=== PATIENT | male | born 1960 | race Hispanic/Latino ===

== ENCOUNTER 2018-10-20 19:58 | Observation (INO) | payer MEDICAID, MEDICARE ==
[2018-10-20 19:58] VITALS: BMI 32.8
[2018-10-20] MEDS ORDERED: Sodium Chloride 0.9% 1,000 ML IV STA (20:20)
--- NOTE | 2018-10-20 20:21 | ED PDOC ---
HPI: Chest Pain Time Seen by Provider: 10/20/18 20:08 Chief Complaint (Nursing): Abdominal Pain Chief Complaint (Provider): chest pain History Per: Patient History/Exam Limitations: no limitations Onset/Duration Of Symptoms: Days (today) Additional Complaint(s): Pt. with chest pain left side and left upper abd. Was at home and tried to eat something which he couldn't swallow and then vomited 1 time with blood tinge. Then the chest pain started. Currently pain improving. Has dyspnea with it. No numbness, tingles, dizziness. No weakness. No leg pain, long distance travel, or hormone use. No back pain. Past Medical History Reviewed: Nursing Documentation, Vital Signs Vital Signs: Last Vital Signs Temp 98.9 F 10/20/18 20:01 Pulse 73 10/20/18 20:01 Resp 18 10/20/18 20:01 BP 144/96 H 10/20/18 20:01 Pulse Ox 96 10/20/18 20:01 Primary Care Provider: DoctorKeely - Medical History PMH: Diabetes, HTN (NO MEDS), Hypercholesterolemia (NO MEDS), Sleep Apnea Other PMH: mi - Family History Family History: States: Unknown Family Hx - Living Arrangements Living Arrangements: With Family - Immunization History Hx Tetanus Toxoid Vaccination: No Hx Influenza Vaccination: Yes Hx Pneumococcal Vaccination: No - Home Medications Home Medications: Ambulatory Orders Medication Instructions Recorded Lisinopril [Zestril] 20 mg PO DAILY 06/11/17 Metformin HCl [Glucophage Xr] 500 mg PO DAILY 06/11/17 Pravastatin Sodium 40 mg PO HS 06/11/17 hydroCHLOROthiazide [Hydrodiuril] 25 mg PO DAILY 06/11/17 Aspirin [Aspirin Chewable] 81 mg PO DAILY 10/20/18 Clonazepam [Klonopin] 0.5 mg PO BID PRN 10/20/18 Montelukast Sodium [Singulair] 10 mg PO DAILY 10/20/18 Mv-Mn/Iron/FA/Vit K/Chol/Coq10 1 tab PO DAILY 10/20/18 [Advanced Multi Ea Chew Tablet] - Allergies Allergies/Adverse Reactions: Allergies Allergy/AdvReac Type Severity Reaction Status Date / Time No Known Allergies Allergy Verified 10/20/18 20:07 Review of Systems ROS Statement: Except As Marked, All Systems Reviewed And Found Negative Cardiovascular: Positive for: Chest Pain Respiratory: Positive for: Shortness of Breath Gastrointestinal: Positive for: Nausea, Vomiting, Abdominal Pain, Hematemesis (1x) Physical Exam - Reviewed Nursing Documentation Reviewed: Yes Vital Signs Reviewed: Yes - Physical Exam Appears: Positive for: Non-toxic, No Acute Distress Head Exam: Positive for: ATRAUMATIC, NORMAL INSPECTION, NORMOCEPHALIC Skin: Positive for: Normal Color, Warm, DRY Eye Exam: Positive for: EOMI, Normal appearance, PERRL ENT: Positive for: Normal ENT Inspection Neck: Positive for: Normal, Painless ROM Cardiovascular/Chest: Positive for: Regular Rate, Rhythm, Chest Non Tender. Negative for: Edema Respiratory: Positive for: CNT, Normal Breath Sounds Gastrointestinal/Abdominal: Positive for: Normal Exam, Soft. Negative for: Tenderness Back: Positive for: Normal Inspection. Negative for: L CVA Tenderness, R CVA Tenderness Extremity: Positive for: Normal ROM. Negative for: Tenderness, Pedal Edema Neurological/Psych: Positive for: Awake, Alert, Normal Tone - Laboratory Results Result Diagrams: 10/20/18 20:50 10/20/18 20:50 Interpretation Of Abn Labs: no acute - ECG ECG: Positive for: Interpreted By Me, Viewed By Me ECG Rhythm: Positive for: Sinus Rhythm, Nonspecific Changes O2 Sat by Pulse Oximetry: 96 Pulse Ox Interpretation: Normal - Radiology X-Ray: Interpreted by Me, Viewed By Me X-Ray Interpretation: No Acute Disease - Progress ED Course And Treament: 2312: Stable. AAOx3. Pain free. Will need admit for further eval considering risk factors. 2322: Spoke with Dr. Irwin. Will admit tele. Disposition - Clinical Impression Clinical Impression: Chest pain - Patient ED Disposition Is Patient to be Admitted: Yes - Disposition Disposition Time: 22:00 Condition: FAIR - Pt Status Changed To: Hospital Disposition Of: Observation - POA Present On Arrival: None
[2018-10-20 21:07] LABS: BASO # 0.1 K/uL (0.0-0.2); BASO % 0.9 % (0.0-2.0); EOS # 0.1 K/uL (0.0-0.7); EOS % 1.6 % (0.0-4.0); HEMOGLOBIN 13.3 g/dL (12.0-18.0); LYMPH # 1.8 K/uL (1.0-4.3); LYMPH % 19.5 % (20.0-40.0); MEAN CELL VOLUME 91.6 fl (80.0-94.0); MEAN CORPUSCULAR HEMOGLOBIN 30.5 pg (27.0-31.0); MEAN CORPUSCULAR HGB CONC 33.3 g/dL (33.0-37.0); MEAN PLATELET VOLUME 7.6 fl (7.2-11.7); MONO # 0.6 K/uL (0.0-0.8); MONO % 6.1 % (0.0-10.0); NEUT # 6.6 K/uL (1.8-7.0); NEUT % 71.9 % (50.0-75.0); RBC 4.35 Mil/uL (4.40-5.90); RED CELL DISTRIBUTION WIDTH 13.7 % (11.5-14.5); WHITE BLOOD COUNT 9.2 K/uL (4.8-10.8)
[2018-10-20 21:13] LABS: INR 1.1; PROTHROMBIN TIME 12.7 Seconds (9.8-13.1)
[2018-10-20 21:19] LABS: ALB/GLOB RATIO 1.5 (1.0-2.1); ALBUMIN 4.2 g/dL (3.5-5.0); ALT/SGPT 48 U/L (21-72); AST/SGOT 41 U/L (17-59); BLOOD UREA NITROGEN 17 mg/dl (9-20); CALCIUM 9.4 mg/dL (8.4-10.2); GFR NON-AFRICAN AMERICAN > 60; LIPASE 70 U/L (23-300)
[2018-10-20 22:06] LABS: B-TYPE NATRIURETIC PEPTIDE 155 pg/ml (0-900)
[2018-10-21 05:41] LABS: HDL CHOLESTEROL 34 MG/DL (30-70)
[2018-10-21 05:52] LABS: LDL CHOLESTEROL 121 mg/dL (0-129)
[2018-10-21 06:28] VITALS: RESP 18
[2018-10-21 07:49] VITALS: BP 126/79; PULSE 70
--- NOTE | 2018-10-21 08:27 | RAD ---
Date of service: 10/20/2018 HISTORY: chest pain COMPARISON: No prior. TECHNIQUE: 1 view obtained. FINDINGS: LUNGS: No active pulmonary disease. PLEURA: No significant pleural effusion identified, no pneumothorax apparent. CARDIOVASCULAR: No aortic atherosclerotic calcification present. Normal cardiac size. No pulmonary vascular congestion. OSSEOUS STRUCTURES: No significant abnormalities. VISUALIZED UPPER ABDOMEN: Normal. OTHER FINDINGS: None. IMPRESSION: No acute cardiopulmonary disease appreciated.
[2018-10-21] MEDS ORDERED: Perflutren Lipid Microsphere 1.5 ML SUS IV ONE (08:51)
[2018-10-21] MEDS: Insulin Lispro (humaLOG) 100 Units/ml Inj SC SCH ×2 (08:52→12:19)
[2018-10-21] MEDS ORDERED: COQ10 PO SCH (09:00)
[2018-10-21] MEDS ORDERED: VIT K PO SCH (09:00)
[2018-10-21] MEDS ORDERED: [UNRECOGNIZED DRUG - OTHER] PO SCH (09:00)
[2018-10-21] MEDS ORDERED: IRON PO SCH (09:00)
[2018-10-21] MEDS ORDERED: MV MN PO SCH (09:00)
[2018-10-21] MEDS ORDERED: CHOL PO SCH (09:00)
--- NOTE | 2018-10-21 09:20 | CARD ---
APPROVED REPORT Date of service: 10/20/2018 EKG Measurement Heart [id number] <Conclusion> Normal sinus rhythm Normal ECG
--- NOTE | 2018-10-21 09:23 | CARD ---
APPROVED REPORT Date of service: 10/20/2018 EKG Measurement Heart [id number] 170P [id number] <Conclusion> Normal sinus rhythm Inferior infarct, age undetermined Cannot rule out small or absent R waves V1-V3, may be due to lead placement or possible septal infarct age undetermined. T wave abnormality, consider lateral ischemia Abnormal ECG
--- NOTE | 2018-10-21 10:21 | CARD ---
APPROVED REPORT Date of service: 10/21/2018 EXAM: Two-dimensional and M-mode echocardiogram with Doppler, color Doppler with contrast. Other Information Quality : GoodRhythm : NSR INDICATION Chest Pain Echo Enhancing Agent Indication: Endocardial border delineation Agent/Amount Used: Definity 2D DIMENSIONS IVSd1.22 (0.7-1.1cm)LVDd5.06 (3.9-5.9cm) LVOT Diameter2.25 (1.8-2.4cm)PWd1.08 (0.7-1.1cm) IVSs1.40 (0.8-1.2cm)LVDs3.24 (2.5-4.0cm) FS (%) 36.0 %PWs1.27 (0.8-1.2cm) M-Mode DIMENSIONS Left Atrium (MM)4.82 (2.5-4.0cm)IVSd1.29 (0.7-1.1cm) Aortic Root2.88 (2.2-3.7cm)LVDd4.82 (4.0-5.6cm) Aortic Cusp Exc.2.09 (1.5-2.0cm)PWd1.32 (0.7-1.1cm) IVSs1.47 cmFS (%) 32 % LVDs3.29 (2.0-3.8cm)PWs1.62 cm Aortic Valve AoV Peak Kwlzsjxn475.0cm/sAoV VTI31.6cmAO Peak GR.7mmHg LVOT Peak Togatpla190.0cm/sLVOT VTI25.29cmAO Mean GR.4mmHg RHONDA (VMAX)1.28ss1YEF (VTI)1.46cm2 Mitral Valve MV E Bghzavti74.1cm/sMV DECEL [id number] A [place]03.6cm/s MV FNT41mxA/A ratio1.4MVA (PHT)4.16cm2 TDI Lateral E' Peak V11.41cm/sMedial E' Peak V10.92cm/sE/Lateral E'7.7 E/Medial E'8.1 LEFT VENTRICLE The left ventricle is normal size. There is normal left ventricular wall thickness. The left ventricular systolic function is normal. The estimated ejection fraction is 55-60% No regional wall motion abnormalities noted.. Transmitral Doppler flow pattern is Grade II-pseudonormal filling dynamics. No left ventricle thrombus noted on this study. There is no ventricular septal defect visualized. There is no left ventricular aneurysm. There is no mass noted in the left ventricle. RIGHT VENTRICLE The right ventricle is normal size. There is normal right ventricular wall thickness. The right ventricular systolic function is normal. ATRIA The left atrium is mildly dilated. The right atrium size is normal. The interatrial septum is intact with no evidence for an atrial septal defect. AORTIC VALVE The aortic valve is normal in structure. No aortic regurgitation is present. There is no aortic valvular stenosis. There is no aortic valvular vegetation. MITRAL VALVE The mitral valve is normal in structure. There is no evidence of mitral valve prolapse. There is no mitral valve stenosis. There is no mitral valve regurgitation noted. TRICUSPID VALVE The tricuspid valve is normal in structure. There is mild tricuspid valve regurgitation noted. RVSP is calculated at less than 20 mm Hg. There is no tricuspid valve prolapse or vegetation. There is no tricuspid valve stenosis. PULMONIC VALVE The pulmonary valve is normal in structure. There is trivial pulmonic valvular regurgitation. There is no pulmonic valvular stenosis. GREAT VESSELS The aortic root is normal in size. The ascending aorta is normal in size. The pulmonary artery is normal. The IVC is normal in size and collapses >50% with inspiration. PERICARDIAL EFFUSION There is no pericardial effusion. There is no pleural effusion. <Conclusion> The estimated ejection fraction is 55-60% Transmitral Doppler flow pattern is Grade II-pseudonormal filling dynamics. The left atrium is mildly dilated. There is mild tricuspid valve regurgitation noted. RVSP is calculated at less than 20 mm Hg.
[2018-10-21 13:11] VITALS: TEMP 98.2; O2SAT 98
--- NOTE | 2018-10-21 13:17 | CT ---
Date of service: 10/21/2018 PROCEDURE: CT Chest without contrast HISTORY: hemoptysis COMPARISON: None available. TECHNIQUE: Contiguous axial images were obtained through the chest without intravenous contrast enhancement. Sagittal and coronal reconstructions were performed. Radiation dose: Total exam DLP = 598.52 mGy-cm. This CT exam was performed using one or more of the following dose reduction techniques: Automated exposure control, adjustment of the mA and/or kV according to patient size, and/or use of iterative reconstruction technique. FINDINGS: LUNGS: No acute infiltrate identified. Central airways are clear. No definitive pattern of diffuse pulmonary fibrosis identified. Trace linear atelectasis or fibrosis in the left lower lobe base approaching the costophrenic sulcus as well as the mid medial right lower lobe. There is a 4.2mm non-calcified nodule at the lingula in image 38 series 4. MEDIASTINUM: Unremarkable thoracic aorta. No aneurysm. Normal sized heart. Coronary artery calcified atherosclerosis. Main pulmonary artery unremarkable. No vascular congestion. No lymphadenopathy. Calcific atherosclerotic changes are seen related to the thoracic aorta. Small hiatal hernia identified. PLEURA: No pleural fluid. No pneumothorax. BONES: No fracture. No destructive lesion. UPPER ABDOMEN: Grossly unremarkable. OTHER FINDINGS: None. IMPRESSION: 1. No definite interstitial pulmonary disease appreciable. No alveolitis bilaterally. No central airway mass. 2. 4.2 mm lingula nodule, nonspecific. Follow-up low-dose chest CT advised in 12 months. Lung-RADs 2 3. No pulmonary vascular congestion or cardiomegaly. Coronary artery atherosclerosis identified. 4. Small hiatal hernia.
--- NOTE | 2018-10-21 14:06 | CP.PCM.PCO ---
Assessment/Plan - Assessment/Plan Assessment (Free Text): Patient seen and examined with Dr Irwin. Echo , ct scan chest reviewed with Cardiology and PMD. Patient cleared for discharge home. Follow up with Dr Shah in [place] and consider outpatient GI workup. Discussed with PMD. - Consults Consult Orders: Consultations 10/21/18 04:09 Pastoral Care Referral Routine Comment: Physician Instructions: Reason For Exam: advance directive information - Problems Patient Problems: Problem List (Active/Current) Problem Status Onset Code Chest pain Acute R07.9
[2018-10-21 15:58] LABS: BARBITURATES, UR NEGATIVE (NEGATIVE); BENZODIAZEPINES, UR NEGATIVE (NEGATIVE); OPIATES, UR NEGATIVE (NEGATIVE); PHENCYCLIDINE, UR NEGATIVE (NEGATIVE)
[2018-10-21] MEDS ORDERED: Pravastatin Sodium 40 MG TAB PO SCH (22:00)
--- NOTE | 2018-10-22 04:48 | CON ---
DATE: 10/21/2018 CARDIOLOGY CONSULTATION REASON FOR CONSULTATION: Chest pain. HISTORY OF PRESENT ILLNESS: The patient is a 58-year-old male who is moderately obese, has history of diabetes mellitus for the past two days, who reported difficulty swallowing his food yesterday followed by vomiting then coughing up copious blood, and following that he started experience chest pain, which is heaviness in nature. The patient is unaware of any prior cardiac history and stated that he underwent a stress test some five years ago that was unremarkable. The patient denies any history of TB or TB exposure, denies any recent loss of weight and denies any night sweats or fever. SOCIAL HISTORY: Nonsmoker. 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 MEDICATIONS: Aspirin 81 mg once a day, Glucophage 250 mg twice a day, hydrochlorothiazide 25 mg once a day, Zestril 20 mg once a day, Singulair 10 mg once a day, Pravachol 40 mg at bedtime. REVIEW OF SYSTEMS: No melena, no hematemesis. PHYSICAL EXAMINATION: GENERAL: The patient is a middle-aged male who does not appear to be in any distress. VITAL SIGNS: Blood pressure 126/79, heart rate 76, temperature 98, and respirations 18. HEENT: Normocephalic. CHEST: Clear. HEART: S1 and S2, regular. EXTREMITIES: No edema. LABORATORY DATA: Today's hemoglobin, hematocrit, white count and platelet count are within normal limits. PT, PTT and INR are within normal limits. SMA-7 is within normal limits except for glucose of 136 and creatinine of 0.7. Lipid profile is within normal limits. Lipase is within normal limits. Two sets of troponins are negative. EKG revealed normal sinus rhythm. Chest x-ray was unremarkable. ASSESSMENT: 1. Chest pain. Myocardial infarction is ruled out. 2. Hemoptysis. 3. Diabetes mellitus. RECOMMENDATIONS: Continue current Zestril, Pravachol, aspirin and metformin. I will review the echocardiographic study performed today and obtain serum D-dimer as well as chest CT scan without contrast and urine for drug screen. Tonio Stevenson MD
--- NOTE | 2018-10-22 07:40 | HP ---
HISTORY OF PRESENT ILLNESS: A 58-year-old male with history of hypertension, type 2 diabetes, hypercholesterolemia, presented to emergency room with symptoms of chest pain after sustaining a bout of cough with vomiting and retching followed by some vomiting of fresh blood as per the patient. The patient denied to have similar symptoms before. The patient was evaluated in the emergency room and admitted for further management. The patient denied to have any shortness of breath, palpitations, or any cardiac symptoms at the time of this examination. PAST MEDICAL HISTORY: Hypertension, type 2 diabetes mellitus, hypercholesterolemia. FAMILY HISTORY: Noncontributory. MEDICATIONS: Reviewed and ordered as per MAR. PHYSICAL EXAMINATION: GENERAL: The patient is in bed, not in any cardiopulmonary distress. VITAL SIGNS: Blood pressure 138/88, temperature 98.2, respiratory rate 18, and pulse 66. HEENT: Pupils equal and reactive to light. Normal-appearing mucosa of the conjunctivae, oropharynx, and nasal membrane mucosa. NECK: Supple. No JVD. No carotid bruit. No lymph node. No thyromegaly. CHEST AND LUNGS: Bilateral symmetrical expansion. Good air exchange. No rales, no rhonchi. CARDIOVASCULAR SYSTEM: PMI not localized. S1, S2. No additional sounds. ABDOMEN: Normoactive bowel sounds. No tenderness, no organomegaly. No masses. EXTREMITIES: No cyanosis, no clubbing, no edema. CENTRAL NERVOUS SYSTEM: Alert, awake, oriented x3. No neurological deficit could be appreciated. ASSESSMENT: Chest pain, myocardial infarction is ruled out, less likely to be upper gastrointestinal bleeding, and all the possibilities of [place]-Kelly tear following frequent retching, questionable hmlwteizhoq-oyqayuqcjh-sbdukx inhibitor induced cough. PLAN: The patient is advised to stop the REGULO inhibitor and to speak to his primary care physician regarding changing the medicine and to refer him to a sugar cane planter machine operator for colonoscopy and possible upper GI workup and upper endoscopy. Discussed with Dr. Stevenson who cleared the patient also for discharge. Liz Iriwn MD
--- NOTE | 2018-10-23 11:54 | DS ---
REASON FOR ADMISSION: This is a 58-year-old male with history of hypertension, type 2 diabetes mellitus, who was admitted for chest pain and vomiting of blood and possible hematemesis. COURSE OF HOSPITALIZATION: The patient was admitted to telemetry floor and myocardial infarction was ruled out by negative cardiac enzymes. The patient did not have any drop of hemoglobin and the history of hematemesis was doubted clinically, as the patient did not have any further symptom while he was in the hospital. The patient was seen by Cardiology and cleared for discharge after normal echocardiogram to have a stress test done as an outpatient. FINAL DIAGNOSES: 1. Chest pain, likely gastroesophageal reflux. 2. Possible REGULO inhibitor-induced cough. 3. Hypertension. 4. Type 2 diabetes mellitus. [facility] MD Dc [facility] # [id number]
== END 2018-10-21 15:02 | disposition home or self-care (01) ==
LOC: H.ER 19:58 → H.ERHOLD 23:21 → H.TEL 10-21 02:53
PROVIDERS: ADMIT Internal Medicine; ATTEND Internal Medicine
DX: R07.9 Chest pain, unspecified (principal); R10.12 Left upper quadrant pain; E11.9 Type 2 diabetes mellitus without complications; Z79.84 Long term (current) use of oral hypoglycemic drugs
CPT/HCPCS: 36415; 71045; 71250; 80053; 80061; 80324; 80345; 80346; 80349; 80353; 80358; 80361; 82948; 83690; 83880; 83992; 84484; 85025; 85378; 85610; 85730; 93005; 93306; 94660; 96361; 96374; 96375; 99284; C9113; G0378; J2405; J7030